=== PATIENT | female | born 1950 | race Caucasian/White ===

== ENCOUNTER 2017-10-20 19:54 | Emergency (ER) | payer MEDICARE, BC ==
[2017-10-20 20:29] LABS: #Basophils 0.1 thou/uL (0.0-0.2); #Eosinphils 0.1 thou/uL (0.0-0.7); #Lymphocytes 1.8 thou/uL (1.20-3.40); #Monocytes 0.3 thou/uL (0.11-0.59); %Basophils 1.2 % (0.0-1.0); %Eosinophils 1.9 % (0.0-10.0); %Lymphocytes 33.9 % (21.0-51.0); %Monocytes 5.8 % (0.0-10.0); %Neutrophils 57.2 % (42.0-75.0); Hemoglobin 12.7 g/dL (12.0-16.0); Mean Corpuscular HGB CONC 34.2 g/dL (32.0-36.0); Mean Corpuscular Hemoglobin 30.1 pg (27.0-31.0); Mean Platelet Volume 9.2 fL (7.4-10.4); Platelet Count 166 thou/uL (130-400); RBC Distribution Width 10.6 % (11.5-14.5); Red Blood Cell (RBC) Count 4.23 mill/uL (4.20-5.40); White Blood Cell (WBC) Count 5.2 thou/uL (4.8-10.8)
[2017-10-20 20:45] LABS: Anion Gap 12 mmol/L (10-20); BUN (Urea Nitrogen) 13 mg/dL (9.8-20.1); Calc. Creatinine Clearance 0 mL/min (70-130); Calcium 9.3 mg/dL (7.8-10.44); Carbon Dioxide 25 mmol/L (23-31); Chloride 105 mmol/L (98-107); Estimated GFR-MDRD 72; Glucose 104 mg/dL (80-115); Potassium 3.9 mmol/L (3.5-5.1); Sodium 138 mmol/L (136-145)
[2017-10-20 20:48] LABS: CKMB 1.1 ng/mL (0-6.6); Troponin I Less than 0.010 ng/mL (< 0.028)
== END 2017-10-20 21:17 | disposition home or self-care (01) ==
LOC: SCSER 19:54
DX: I10 Essential (primary) hypertension (principal); I34.1 Nonrheumatic mitral (valve) prolapse
CPT/HCPCS: 80048; 82553; 84484; 85025; 93005

== ENCOUNTER 2017-11-14 04:27 | Emergency (ER) | payer MEDICARE, BC ==
[2017-11-14] MEDS ORDERED: predniSONE 20 MG TAB ONE (05:07)
[2017-11-14] MEDS ORDERED: diphenhydrAMINE 25 MG CAP ONE (05:07)
[2017-11-14] MEDS ORDERED: methylPREDNISolone Acetate 40 mg/ml Vial ONE (05:07)
--- NOTE | 2018-02-04 08:26 | ER ---
DATE OF SERVICE: 11/14/2017 HISTORY OF PRESENT ILLNESS: The patient is a 67-year-old female who presents with an itchy rash over much of her body. 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 She developed rash with redness and itching yesterday initially on her ears and then ultimately generalizing to multiple regions including her hands, her torso, her neck, her buttocks a nd her face. She is having no difficulties with breathing, no difficulties with wheezing and no sens e of closing airway. She is otherwise feeling well at this time with no other complaints. PAST MEDICAL HISTORY/SOCIAL HISTORY/FAMILY HISTORY: All reviewed. REVIEW OF SYSTEMS: The patient has a situation of difficulty sleeping. CONSTITUTIONAL: She is in no acute distress. SKIN: She has complaint of rash and itching. The rest of her review of systems are negative including ENT, neck, respiratory, heart, abdomen muscu loskeletal, neurologic. PHYSICAL EXAMINATION: GENERAL: She is a slightly uncomfortable appearing female, but in no acute distress. VITAL SIGNS: Reviewed and are as listed. SKIN: She has a red and raised rash somewhat on her ears, diffuse also on her forehead and cheeks, n kinza, the top of her chest and her hands and arms. In addition, she has a rash present in the crease of her buttocks. All of these that she says have come about in the last 12 hours. HEENT: Her ENT exam is normal with normal TMs, normal nose, normal throat. Her eye exam: Pupils eq ual, round, reactive to light. Extraocular movements intact. Normal conjunctivae. No erythema. HEART: Regular with no murmurs. LUNGS: Clear. ABDOMEN: Soft, nontender. MUSCULOSKELETAL: Normal. NEUROLOGIC: No acute neuro findings. 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 Other items considered in differential, but the patient not in any distress or evidence of any respiratory issues at this time suggestive of baljeet phylaxis. We will attempt an injection of steroid as well as Benadryl for additional control then re commend home taper of steroids to continue as well as Benadryl. She will visit with Cardiology regar ding the adhesives whether or not it may be contributing to the allergy.
== END 2017-11-14 05:56 | disposition home or self-care (01) ==
LOC: SCSER 04:27
DX: L50.0 Allergic urticaria (principal); I10 Essential (primary) hypertension; E03.9 Hypothyroidism, unspecified; I34.1 Nonrheumatic mitral (valve) prolapse
CPT/HCPCS: 96372; J1030; J7506

== ENCOUNTER → 2021-08-20 | Day surgery (SDC) | payer MEDICARE, BC | END | disposition home or self-care (01) | LOC: BICULT 12:36 | PROVIDERS: ATTEND Internal Medicine | PROC: 0H9U3ZX Drainage of Left Breast, Percutaneous Approach, Diagnostic (ICD-10-PCS; principal; 2021-08-20) | DX: N64.1 Fat necrosis of breast (principal); Z88.5 Allergy status to narcotic agent; Z88.8 Allergy status to other drugs, medicaments and biological substances | CPT/HCPCS: 19083; 88305 ==

== ENCOUNTER 2023-09-30 13:51 | Outpatient (CLI) | payer MEDICARE | END 2023-09-30 13:52 | disposition home or self-care (01) | LOC: BICMAMMO 13:51 | PROVIDERS: ATTEND Internal Medicine | DX: Z12.31 Encounter for screening mammogram for malignant neoplasm of breast (principal) | CPT/HCPCS: 77063; 77067 ==

== ENCOUNTER 2023-10-12 13:19 | Outpatient (CLI) | payer MEDICARE ==
[2023-10-12] MEDS ORDERED: Sterile Water 10 ML ONE (15:43)
[2023-10-12] MEDS ORDERED: Sincalide 5 MCG VIAL ONE (15:43)
[2023-10-12] MEDS ORDERED: Bacteriostatic Normal Saline 30 ML VIAL ONE (15:44)
== END 2023-10-12 13:20 | disposition home or self-care (01) ==
LOC: NM 13:19
PROVIDERS: ATTEND Internal Medicine
DX: R10.9 Unspecified abdominal pain (principal)
CPT/HCPCS: 78227; A9537; J2805

== ENCOUNTER 2025-01-05 13:18 | Outpatient (CLI) | payer MEDICARE | END 2025-01-05 13:19 | disposition home or self-care (01) | LOC: BICMAMMO 13:18 | PROVIDERS: ATTEND Internal Medicine | DX: Z12.31 Encounter for screening mammogram for malignant neoplasm of breast (principal); Z13.820 Encounter for screening for osteoporosis; M81.0 Age-related osteoporosis without current pathological fracture; M85.89 Other specified disorders of bone density and structure, multiple sites; Z91.89 Other specified personal risk factors, not elsewhere classified | CPT/HCPCS: 77063; 77067; 77080 ==